=== PATIENT | male | born 1965 ===

== ENCOUNTER → 2023-05-21 | Day surgery (SDC) | payer OTHER ==
[~2023-05-21] MED LIST: DIPHENHYDRAMINE HCL 50 MG/ML VIAL 1ML IV ONE; MIDAZOLAM HCL 2 MG/2 ML VIAL IV ONE; fentaNYL CITRATE 50 MCG/ML AMPUL IV PUSH ONE
== END | disposition home or self-care (01) ==
LOC: ADM 05-11 13:15 → AMB-ENDOS 06:38
PROVIDERS: ATTEND Surgery
DX: D12.2 Benign neoplasm of ascending colon (principal); D12.5 Benign neoplasm of sigmoid colon; K57.30 Diverticulosis of large intestine without perforation or abscess without bleeding